=== PATIENT | male | born 1980 | race Caucasian/White ===

== ENCOUNTER 2017-01-11 12:24 | Emergency (ER) | payer SELFPAY ==
[~2017-01-11 12:24] MED LIST: CLEO300C2 PO; IBUP-238 PO
[2017-01-11 12:27] VITALS: BP 133/87; PULSE 88; RESP 15; TEMP 98.4; O2SAT 98
[2017-01-11] MEDS ORDERED: SODIUM CHLORIDE 0.9% FLUSH 10 ML FLUSH IVF PRN (12:30)
[2017-01-11 12:49] VITALS: O2SAT 98
[2017-01-11 12:52] LABS: AUTOMATED NEUTROPHIL # 5.1 TH/MM3 (1.8-7.7); BASOPHIL # 0.1 TH/MM3 (0-0.2); BASOPHIL % 1.3 % (0.0-2.0); EOSINOPHIL # 0.3 TH/MM3 (0-0.4); EOSINOPHIL % 2.5 % (0.0-4.0); HEMATOCRIT 46.4 % (39.0-51.0); LYMPH % 37.9 % (9.0-44.0); LYMPHOCYTE # 4.1 TH/MM3 (1.0-4.8); MEAN CELL VOLUME 90.7 FL (80.0-100.0); MEAN CORPUSCULAR HEMOGLOBIN 30.3 PG (27.0-34.0); MEAN CORPUSCULAR HGB CONC 33.4 % (32.0-36.0); MONO % 10.1 % (0.0-8.0); NEUT % 48.2 % (16.0-70.0); PLATELET COUNT 401 TH/MM3 (150-450); RED BLOOD COUNT 5.12 MIL/MM3 (4.50-5.90); RED CELL DISTRIBUTION WIDTH 12.5 % (11.6-17.2); WHITE BLOOD COUNT 10.7 TH/MM3 (4.0-11.0)
[2017-01-11 13:00] LABS: CHLORIDE 108 MEQ/L (98-107); POTASSIUM 3.8 MEQ/L (3.5-5.1); SODIUM (NA) 141 MEQ/L (136-145)
--- NOTE | 2017-01-11 13:00 | RADHPO ---
EXAM DATE/TIME: 01/11/2017 12:43 [place] COMPARISON: No previous studies available for comparison. INDICATIONS : Chest pain MEDICAL HISTORY : None. SURGICAL HISTORY : None. ENCOUNTER: Initial ACUITY: 1 day PAIN SCORE: 6/10 LOCATION: Bilateral chest FINDINGS: A single view of the chest demonstrates the lungs to be symmetrically aerated without evidence of mas s, infiltrate or effusion. The cardiomediastinal contours are unremarkable. Osseous structures are intact. CONCLUSION: No acute disease. Tyrese Price MD on January 11, 2017 at 12:57 Board Certified Radiologist. This report was verified electronically.
[2017-01-11 13:04] LABS: ANION GAP 10 MEQ/L (5-15); BICARBONATE 23.2 MEQ/L (21.0-32.0); BLOOD UREA NITROGEN 10 MG/DL (7-18); MAGNESIUM 2.2 MG/DL (1.5-2.5)
[2017-01-11 13:07] LABS: ALT (GPT) 18 U/L (12-78); AST (GOT) 17 U/L (15-37); GLOMERULAR FILTRATION RATE 75 ML/MIN (>89); HEMO FLAGS DIFF FINAL
[2017-01-11 13:08] LABS: TOTAL BILIRUBIN ADULT 0.5 MG/DL (0.2-1.0)
[2017-01-11 13:09] LABS: ALKALINE PHOSPHATASE 99 U/L (45-117); CREATINE KINASE 176 U/L (39-308)
[2017-01-11 13:12] LABS: PROTHROMBIN TIME - PATIENT 10.9 SEC (9.8-11.6)
--- NOTE | 2017-01-11 13:12 | PD ---
HPI Chief Complaint: Chest Pain Time Seen by Provider: 12:29 Travel History International Travel<30 days: No Contact w/Intl Traveler<30days: No Traveled to known affect area: No History of Present Illness HPI 2 DAY H/O SHARP CHEST PAIN WORSE WITH BREATHING, H/O 1PPD SMOKING, DENEIS PROD SPUTUM AT THIS POINT PFSH Past Surgical History Tonsillectomy: Yes Social History Alcohol Use: No Tobacco Use: Yes (1 PPD) Substance Use: No Allergies-Medications (Allergen,Severity, Reaction): Coded Allergies: Penicillin (Verified Allergy, Mild, 01/11/17) Reported Meds & Prescriptions Reported Meds & Active Scripts Active No Active Prescriptions or Reported Medications Review of Systems Except as stated in HPI: all other systems reviewed are Neg Cardiovascular: Positive: Chest Pain or Discomfort Respiratory: Positive: Cough Physical Exam Narrative GENERAL: SKIN: Warm and dry. HEAD: Atraumatic. Normocephalic. EYES: Pupils equal and round. No scleral icterus. No injection or drainage. ENT: No nasal bleeding or discharge. Mucous membranes pink and moist. NECK: Trachea midline. No JVD. CARDIOVASCULAR: Regular rate and rhythm. RESPIRATORY: No accessory muscle use. Clear to auscultation. Breath sounds equal bilaterally. GASTROINTESTINAL: Abdomen soft, non-tender, nondistended. Hepatic and splenic margins not palpable. MUSCULOSKELETAL: Extremities without clubbing, cyanosis, or edema. No obvious deformities. NEUROLOGICAL: Awake and alert. No obvious cranial nerve deficits. Motor grossly within normal limits. Five out of 5 muscle strength in the arms and legs. Normal speech. PSYCHIATRIC: Appropriate mood and affect; insight and judgment normal. Data Data Last Documented VS Vital Signs Date Time Temp Pulse Resp B/P Pulse Ox O2 Delivery O2 Flow Rate FiO2 01/11/17 12:49 98 Room Air 01/11/17 12:27 98.4 88 15 133/87 Orders Electrocardiogram (01/11/17 12:30) B-Type Natriuretic Peptide (01/11/17 12:30) Ckmb (Isoenzyme) Profile (01/11/17 12:30) Complete Blood Count With Diff (01/11/17 12:30) Comprehensive Metabolic Panel (01/11/17 12:30) D-Dimer (01/11/17 12:30) Magnesium (Mg) (01/11/17 12:30) Prothrombin Time / Inr (Pt) (01/11/17 12:30) Act Partial Throm Time (Ptt) (01/11/17 12:30) Troponin I (01/11/17 12:30) Lipase (01/11/17 12:30) Chest, Single Ap (01/11/17 12:30) Ecg Monitoring (01/11/17 12:30) Bilateral Bp Monitoring (01/11/17 12:30) Iv Access Insert/Monitor (01/11/17 12:30) Oximetry (01/11/17 12:30) Oxygen Administration (01/11/17 12:30) Sodium Chloride 0.9% Flush (Ns Flush) (01/11/17 12:30) CKMB (01/11/17 12:45) CKMB% (01/11/17 12:45) Labs Laboratory Tests Test 01/11/17 12:45 White Blood Count 10.7 TH/MM3 Red Blood Count 5.12 MIL/MM3 Hemoglobin 15.5 GM/DL Hematocrit 46.4 % Mean Corpuscular Volume 90.7 FL Mean Corpuscular Hemoglobin 30.3 PG Mean Corpuscular Hemoglobin 33.4 % Concent Red Cell Distribution Width 12.5 % Platelet Count 401 TH/MM3 Mean Platelet Volume 8.3 FL Neutrophils (%) (Auto) 48.2 % Lymphocytes (%) (Auto) 37.9 % Monocytes (%) (Auto) 10.1 % Eosinophils (%) (Auto) 2.5 % Basophils (%) (Auto) 1.3 % Neutrophils # (Auto) 5.1 TH/MM3 Lymphocytes # (Auto) 4.1 TH/MM3 Monocytes # (Auto) 1.1 TH/MM3 Eosinophils # (Auto) 0.3 TH/MM3 Basophils # (Auto) 0.1 TH/MM3 CBC Comment DIFF FINAL Differential Comment Prothrombin Time 10.9 SEC Prothromb Time International 1.0 RATIO Ratio Activated Partial 30.0 SEC Thromboplast Time D-Dimer Quantitative (PE/DVT) 0.22 MG/L FEU Sodium Level 141 MEQ/L Potassium Level 3.8 MEQ/L Chloride Level 108 MEQ/L Carbon Dioxide Level 23.2 MEQ/L Anion Gap 10 MEQ/L Blood Urea Nitrogen 10 MG/DL Creatinine 1.10 MG/DL Estimat Glomerular Filtration 75 ML/MIN Rate Random Glucose 93 MG/DL Calcium Level 9.0 MG/DL Magnesium Level 2.2 MG/DL Total Bilirubin 0.5 MG/DL Aspartate Amino Transf 17 U/L (AST/SGOT) Alanine Aminotransferase 18 U/L (ALT/SGPT) Alkaline Phosphatase 99 U/L Total Creatine Kinase 176 U/L Troponin I LESS THAN 0.02 NG/ML B-Type Natriuretic Peptide LESS THAN 2 PG/ML Total Protein 7.8 GM/DL Albumin 4.0 GM/DL Lipase 208 U/L MDM Medical Decision Making Medical Screen Exam Complete: Yes Emergency Medical Condition: Yes Medical Record Reviewed: Yes Interpretation(s) NSR 85, NL INTERVALS, NO STEMI PATTERN Differential Diagnosis PNA V PLEURISY V BRONCHITIS V PE Narrative Course EKG NEG FOR AL, LOW RISK FOR PE WITH NEG DDIMER, CXR DID NOT REVEAL ANY CONSOLIDATION/PTX. PATIENT'S PAIN RESOLVED WITH TORADOL LIKELY DUE TO PLEURISY WILL D/C AND RECC OUTPATIENT CARDIAC RISK STRATIFICATION Diagnosis Primary Impression: Pleurisy Patient Instructions: General Instructions, Pleurisy (ED) Additional Instructions: IT IS RECCOMENDED THAT YOU FOLLOW UP WITH A [facility]SE SPR[facility]ER FOR FURTHER CARDIAC RISK STRATIFICATION OUTPATIENT (STRESS TEST, ECHO, ETC) Med/Other Pt SpecificInfo: Prescription(s) given Scripts Codeine-Acetaminophen 30-300 mg Tab1 Tab PO Q4H PRN (PAIN) #15 TAB Ref 0 Prov:Royal Ontiveros MD 01/11/17 Methylprednisolone Dosepak (Medrol Dosepak)4 Mg Dspk4 Mg PO DIRECTED #1 DSPK Ref 0 Per Pharmacist direction Prov:Royal Ontiveros MD 01/11/17 Azithromycin (Zithromax Z-Ambrocio)250 Mg Avmz110 Mg PO DIRECTED #1 DSPK Ref 0 500 MG (2 tabs) day 1, then 1 tab days 2-5. Prov:Royal Ontiveros MD 01/11/17 Disposition: 01 DISCHARGE HOME Condition: Stable Royal Ontiveros MD Jan 11, 2017 13:12
[2017-01-11] MEDS ORDERED: ZITHTAB PO (13:19)
[2017-01-11] MEDS ORDERED: MEDR4PAK PO (13:19)
[2017-01-11] MEDS ORDERED: CODE30TA2 PO (13:19)
[2017-01-11 13:21] LABS: CKMB 0.7 NG/ML (0.5-3.6)
[2017-01-11 13:46] VITALS: BP 133/78
--- NOTE | 2017-01-12 13:35 | EKG ---
Date Performed: 01/11/2017 Time Performed: 12:29:46 PTAGE: 36 years EKG: Sinus rhythm NORMAL ECG NO PREVIOUS TRACING DOCTOR: Josh Marcelo Interpretating Date/Time 01/12/2017 13:32:15
== END 2017-01-11 13:49 | disposition home or self-care (01) ==
LOC: PHED 12:24
DX: R09.1 Pleurisy (principal); Z88.0 Allergy status to penicillin; F17.210 Nicotine dependence, cigarettes, uncomplicated
CPT/HCPCS: 71010; 80053; 82550; 82552; 83690; 83735; 83880; 84484; 85025; 85379; 85610; 85730; 93005; 99285

== ENCOUNTER 2017-05-15 16:06 | Emergency (ER) | payer SELFPAY ==
[~2017-05-15] VITALS: Ht 188 cm; Wt 87.9 kg
[~2017-05-15 16:06] MED LIST changes: -CLEO300C2 PO; +CODE30TA2 PO; -IBUP-238 PO; +MEDR4PAK PO; +ZITHTAB PO
[2017-05-15 16:10] VITALS: BP 115/55; PULSE 74; RESP 16; TEMP 98.4; O2SAT 96
--- NOTE | 2017-05-15 17:11 | PD ---
HPI . Nausea and vomiting Chief Complaint: Cold / Flu Symptoms Time Seen by Provider: 16:39 Travel History International Travel<30 days: No Contact w/Intl Traveler<30days: No Traveled to known affect area: No History of Present Illness HPI 36-year-old male patient presents emergency department for evaluation of nausea and vomiting that started late last night and resolved at 5 AM this morning. Patient denies any fevers, chills, malaise. Patient has not vomited since 5 AM. Patient states there was no blood in the vomit. Patient's abdomen is nontender. Patient denies any diarrhea or constipation. Patient has been drinking Gatorade all day. Patient states the only reason he came in to the emergency room is to get a work note to go back tomorrow. PFSH Past Medical History Tetanus Vaccination: < 5 Years Influenza Vaccination: No Past Surgical History Tonsillectomy: Yes Social History Alcohol Use: No Tobacco Use: No Substance Use: No Allergies-Medications (Allergen,Severity, Reaction): Coded Allergies: penicillin G (Unverified Allergy, Mild, 05/15/17) Reported Meds & Prescriptions Reported Meds & Active Scripts Active Review of Systems Except as stated in HPI: all other systems reviewed are Neg Physical Exam Narrative GENERAL: Well-nourished, well-developed 36-year-old male patient in no acute distress. Nontoxic appearing. SKIN: Focused skin assessment warm/dry. HEAD: Normocephalic. Atraumatic. EYES: No scleral icterus. No injection or drainage. NECK: Supple, trachea midline. No JVD or lymphadenopathy. CARDIOVASCULAR: Regular rate and rhythm without murmurs, gallops, or rubs. RESPIRATORY: Breath sounds equal bilaterally. No accessory muscle use. GASTROINTESTINAL: Abdomen soft, non-tender, nondistended. MUSCULOSKELETAL: Full range of motion in all extremities.. No cyanosis, or edema. BACK: Nontender without obvious deformity. No CVA tenderness. Data Data Last Documented VS Vital Signs Date Time Temp Pulse Resp B/P (MAP) Pulse Ox O2 Delivery O2 Flow Rate FiO2 05/15/17 16:37 20 05/15/17 16:10 98.4 74 115/55 (75) 96 MDM Medical Decision Making Medical Screen Exam Complete: Yes Emergency Medical Condition: Yes Differential Diagnosis Differential diagnoses include viral illness, gastroenteritis, work note clearance Narrative Course 36-year-old male patient presents emergency department after having nausea and vomiting that prevented him from going to work today. Patient states he has been drinking Gatorade all day. Patient states the only reason he came in is to get a work note to go back tomorrow. Patient is afebrile. He states he has not vomited since 5 AM this morning. His abdomen is nontender. Patient will be given a work note to go back to work tomorrow and discharged from the emergency department. Diagnosis Primary Impression: Gastroenteritis Patient Instructions: Gastroenteritis (DC), General Instructions Departure Forms: Tests/Procedures, Work Release Enter return to work date: May 16, 2017 Additional Instructions: Continue to drink Gatorade and stay hydrated. Return to the emergency department with any new or worsening symptoms. Disposition: 01 DISCHARGE HOME Condition: Stable Kristan Ragland May 15, 2017 17:11
== END 2017-05-15 17:23 | disposition home or self-care (01) ==
LOC: PHEFT 16:06
DX: K52.9 Noninfective gastroenteritis and colitis, unspecified (principal)
CPT/HCPCS: 99281

== ENCOUNTER 2017-12-18 08:11 | Emergency (ER) | payer SELFPAY ==
[~2017-12-18] VITALS: Ht 188 cm; Wt 84.0 kg
[~2017-12-18 08:11] MED LIST changes: +BACT800T5 PO; -CODE30TA2 PO; -MEDR4PAK PO; -ZITHTAB PO
[2017-12-18 08:12] VITALS: BP 125/72; PULSE 82; RESP 18; TEMP 97.7; O2SAT 96
[2017-12-18] MEDS ORDERED: BENZ100 PO (08:29)
[2017-12-18] MEDS ORDERED: PRED20 PO (08:29)
[2017-12-18] MEDS: RESP: ALBUTEROL 2.5 MG/IPRATROPIUM 0.5 MG NEB (SCH) INH (08:29)
[2017-12-18] MEDS ORDERED: ALBUAER3 INH (08:29)
[2017-12-18] MEDS ORDERED: AZIT500T2 PO (08:29)
--- NOTE | 2017-12-18 08:29 | PD ---
HPI Chief Complaint: Cold / Flu Symptoms Time Seen by Provider: 08:18 Travel History International Travel<30 days: No Contact w/Intl Traveler<30days: No Traveled to known affect area: No History of Present Illness HPI Patient is a 37-year-old male who presents the emergency room with complaints of cough, congestion, wheezing for the past 3 days. Patient reports no sick contacts at home, reports that for the past 2 days, he has had a thick productive cough. Patient denies any fevers or chills, reports that he tried taking Robitussin at home with no relief of symptoms. Patient is a smoker, reports that he is trying to quit smoking. Patient with no other complaints at this time. PFSH Past Medical History Medical History: Denies Significant Hx Past Surgical History Narrative Surgical Previous history of orthopedic surgery in the past Tonsillectomy: Yes Social History Alcohol Use: No Tobacco Use: Yes Substance Use: No Allergies-Medications (Allergen,Severity, Reaction): Coded Allergies: penicillin G (Unverified Allergy, Mild, 12/18/17) Reported Meds & Prescriptions Reported Meds & Active Scripts Active Tessalon Perles (Benzonatate) 100 Mg Cap 100 Mg PO TID PRN Azithromycin 500 Mg Tab 500 Mg PO DAILY Proair Hfa 8.5 GM Inh (Albuterol Sulfate) 90 Mcg/Act Aer 2 Puff INH Q4-6H PRN 108 mcg/actuation Prednisone 20 Mg Tab 20 Mg PO BID 5 Days Review of Systems General / Constitutional: No: Fever, Chills Eyes: No: Visual changes HENT: No: Headaches Cardiovascular: No: Chest Pain or Discomfort Respiratory: Positive: Cough, Shortness of Breath, Wheezing Gastrointestinal: No: Abdominal Pain Genitourinary: No: Dysuria Musculoskeletal: No: Pain Skin: No Rash Neurologic: No: Weakness Psychiatric: No: Depression Endocrine: No: Polydipsia Hematologic/Lymphatic: No: Easy Bruising Physical Exam Narrative GENERAL: Well-nourished, well-developed patient. SKIN: Focused skin assessment warm/dry. HEAD: Normocephalic. EYES: No scleral icterus. No injection or drainage. NECK: Supple, trachea midline. No JVD or lymphadenopathy. CARDIOVASCULAR: Regular rate and rhythm without murmurs, gallops, or rubs. RESPIRATORY: Breath sounds equal bilaterally. No accessory muscle use. Patient with diffuse wheezing on exam GASTROINTESTINAL: Abdomen soft, non-tender, nondistended. MUSCULOSKELETAL: No cyanosis, or edema. BACK: Nontender without obvious deformity. No CVA tenderness. Data Data Last Documented VS Vital Signs Date Time Temp Pulse Resp B/P (MAP) Pulse Ox O2 Delivery O2 Flow Rate FiO2 12/18/17 08:24 18 Room Air 12/18/17 08:12 97.7 82 125/72 (89) 96 Orders Orders Chest, Pa & Lat (12/18/17 08:23) Prednisone (Deltasone) (12/18/17 08:30) Albuterol-Ipratropium Neb (Duoneb Neb) (12/18/17 08:30) Azithromycin (Zithromax) (12/18/17 09:30) Albuterol Hfa Inh (Proair Hfa Inh) (12/18/17 09:45) [facility] Medical Decision Making Medical Screen Exam Complete: Yes Emergency Medical Condition: Yes Medical Record Reviewed: Yes Interpretation(s) Vital Signs Date Time Temp Pulse Resp B/P (MAP) Pulse Ox O2 Delivery O2 Flow Rate FiO2 12/18/17 08:12 97.7 82 18 125/72 (89) 96 Differential Diagnosis COPD exacerbation, pneumonia, acute bronchitis Narrative Course Patient is a 37-year-old male presents the emergency room with complaints of cough and wheezing with thick sputum production for the past 3 days. Patient with no fever chills, patient with no other complaints. During the course of the patients emergency department visit, the patients history, examination, and differential diagnosis were reviewed with the patient. The patient was initially provided prednisone, duo neb treatments. Radiology studies were reviewed and remarkable for : Negative for acute infiltrates Patient reevaluated after neb treatments were administered, patient feeling much better, patient with decreased wheezing. Patient with most likely acute bronchitis, will treat with steroids, neb treatments as well as azithromycin. Patient will follow up with his primary care doctor and will return to the emergency room as needed. Diagnosis Primary Impression: Bronchitis Patient Instructions: General Instructions Additional Instructions: Please take all medications as prescribed Please follow up with your primary care doctor in 2-3 days Return to the ER if symptoms worsen or progress Return to the ER as needed Med/Other Pt SpecificInfo: Prescription(s) given Scripts Benzonatate (Tessalon Perles) 100 Mg Cap 100 MG PO TID Y for COUGH, #30 CAP 0 Refills Prov: Clarisse Kirk DO 12/18/17 Azithromycin (Azithromycin) 500 Mg Tab 500 MG PO DAILY for Infection, #5 TAB 0 Refills Prov: Clarisse Kirk DO 12/18/17 Albuterol 8.5 GM Inh (Proair Hfa 8.5 GM Inh) 90 Mcg/Act Aer 2 PUFF INH Q4-6H Y for SHORTNESS OF BREATH, #1 INHALER 0 Refills 108 mcg/actuation Prov: Clarisse Kirk DO 12/18/17 Prednisone (Prednisone) 20 Mg Tab 20 MG PO BID for 5 Days, #10 TAB 0 Refills Prov: Clarisse Kirk DO 12/18/17 Disposition: 01 DISCHARGE HOME Condition: Stable Clarisse Kirk DO December 18, 2017 08:29
[2017-12-18] MEDS ORDERED: predniSONE 20 MG TAB PO ONE (08:30)
--- NOTE | 2017-12-18 09:05 | RADRPT ---
EXAM DATE: 12/18/2017 8:55 AM EDT AGE/SEX: 37 years / Male INDICATIONS: Cough, chest congestion, difficulty breathing. CLINICAL DATA: This is the patient's initial encounter. Patient reports that signs and symptoms have been present for 2 days and indicates a pain score of 0/10. MEDICAL/SURGICAL HISTORY: None. None. COMPARISON: No prior exams available for comparison. FINDINGS: PA and lateral views of the chest demonstrate the lungs to be symmetrically aerated without evidence of mass, infiltrate or effusion. The cardiomediastinal contours are unremarkable. Osseous structures are intact. CONCLUSION: Normal exam Electronically signed by: Dayna Craven MD 12/18/2017 9:04 AM EDT
[2017-12-18] MEDS ORDERED: AZITHROMYCIN 250 MG TAB PO ONE (09:30)
[2017-12-18] MEDS ORDERED: ALBUTEROL SULFATE 90 MCG/ACT HFA 8 GM INHALER INH ONE (09:45)
== END 2017-12-18 09:56 | disposition home or self-care (01) ==
LOC: PHED 08:11
DX: J40 Bronchitis, not specified as acute or chronic (principal); R06.2 Wheezing; Z72.0 Tobacco use
CPT/HCPCS: 71046; 94640; 94664; 99283; J7512